=== PATIENT | female | born 1975 | race Caucasian/White ===

== ENCOUNTER 2022-08-05 11:33 | Emergency (ER) | payer OTHER ==
[~2022-08-05] VITALS: Ht 162.6 cm; Wt 77.1 kg
[2022-08-05] MEDS ORDERED: VYVANSE20 MG PO (11:42)
[2022-08-05] MEDS ORDERED: ZOLOFT50 MG (11:42)
== END 2022-08-05 15:14 | disposition home or self-care (01) ==
LOC: ER 11:33
DX: S01.521A Laceration with foreign body of lip, initial encounter (principal); V19.9XXA Pedal cyclist (driver) (passenger) injured in unspecified traffic accident, initial encounter; Y93.55 Activity, bike riding; Y92.413 State road as the place of occurrence of the external cause; S81.821A Laceration with foreign body, right lower leg, initial encounter; S02.2XXA Fracture of nasal bones, initial encounter for closed fracture